=== PATIENT | male | born 1945 | race African-American/Black ===

== ENCOUNTER 2016-08-07 19:14 | Emergency (ER) | payer MEDICARE, MEDICAID ==
[~2016-08-07] VITALS: Ht 182.9 cm; Wt 75.0 kg
[2016-08-07 21:38] LABS: HEMATOCRIT. 37.3 % (42.0-52.0); HEMOGLOBIN. 11.9 g/dL (14.0-18.0); LYMPHOCYTES % 33.2 % (20.0-50.0); MEAN CORPUSCULAR HEMOGLOBIN 29.2 pg (28.0-32.0); MEAN CORPUSCULAR HGB CONC 31.9 g/dL (31.0-37.0); MEAN CORPUSCULAR VOLUME 91.6 fL (80.0-94.0); MEAN PLATELET VOLUME 8.7 fl (7.4-10.4); MONOCYTES % 8.7 % (2.0-8.0); NEUTROPHILS % 55.1 % (40.0-76.0); PLATELET 263 x1000/uL (130-400); RED BLOOD CELL COUNT 4.07 mill/uL (4.7-6.1); RED CELL DISTRIBUTION WIDTH 12.6 % (11.6-14.6); WHITE BLOOD COUNT 7.1 x1000/uL (4.5-11.0)
[2016-08-07 21:41] LABS: CHLORIDE 108 mEq/L (98-107); INDEX HEMOLYSI 1 (1-3); INDEX ICTERIC 1 (1-4); INDEX LIPEMIC 1 (1-3)
[2016-08-07 21:42] LABS: CALCIUM 9.3 mg/dL (8.5-10.1)
[2016-08-07 21:44] LABS: ALBUMIN 4.2 g/dL (3.4-5.0); ANION GAP 11; CARBON DIOXIDE 28 mEq/L (21-32); UREA NITROGEN BLOOD 25 mg/dL (7-21)
[2016-08-07 21:48] LABS: ALANINE AMINOTRANSFERASE 19 IU/L (13-61); eGFR 31 mL/min (>60)
[2016-08-07 23:30] VITALS: BP 153/85
== END 2016-08-07 23:30 | disposition home or self-care (01) ==
LOC: ER 19:16
DX: M54.2 Cervicalgia (principal); I71.4 Abdominal aortic aneurysm, without rupture; I10 Essential (primary) hypertension; V49.9XXA Car occupant (driver) (passenger) injured in unspecified traffic accident, initial encounter; Y93.89 Activity, other specified; Y92.89 Other specified places as the place of occurrence of the external cause; Y99.8 Other external cause status
CPT/HCPCS: 36415; 72125; 80053; 85025; 99285